=== PATIENT | male | born 1990 | race American Indian/Alaskan Native ===

== ENCOUNTER 2019-07-19 08:05 | Emergency (ER) | payer OTHER ==
[2019-07-19 08:17] VITALS: BP 145/85; PULSE 94; TEMP 98.2; BMI 25.7
--- NOTE | 2019-07-19 08:30 | PDOC ---
History of Present Illness - General Chief Complaint: Pain, Acute Stated Complaint: LT ANKLE INJURY Time Seen by Provider: 07/19/19 08:21 History Source: Patient Exam Limitations: No Limitations - History of Present Illness Initial Comments: 07/19/19 08:32 28 year old male with no significant medical or surgical history presents with pain in left ankle since this am . Patient reports twisting ankle while working this am . STates while picking up garbage he externally rotated his left foot. Occurred: reports: just prior to arrival Method of Injury: reports: twisted Modifying Factors: improves with: immobilization Extremity Pain Location - Extremity Pain Location Extremity Pain Locations: left: foot, ankle Past History - Travel Traveled outside of the country in the last 30 days: No Close contact w/someone who was outside of country & ill: No - Past Medical History Allergies/Adverse Reactions: Allergies Allergy/AdvReac Type Severity Reaction Status Date / Time No Known Allergies Allergy Verified 07/19/19 08:17 Home Medications: Ambulatory Orders Ibuprofen 600 mg PO TID #20 tablet 07/19/19 - Immunization History Immunization Up to Date: No - Psycho Social/Smoking Cessation Hx Smoking History: Former smoker Have you smoked in the past 12 months: Yes Information on smoking cessation initiated: No Hx Alcohol Use: Yes Drug/Substance Use Hx: No Substance Use Type: Alcohol Review of Systems - Review of Systems Able to Perform ROS?: Yes Is the patient limited Russian proficient: No Constitutional: No: Chills, Fever HEENTM: No: Ear Discharge, Nose Pain, Nose Congestion, Throat Pain, Throat Swelling Respiratory: No: Shortness of Breath, SOB at Rest, Wheezing Cardiac (ROS): No: Chest Pain, Lightheadedness : No: Discharge, Hematuria, Incontinence, Urgency Musculoskeletal: Yes: Joint Pain, Joint Swelling Integumentary: No: Bruising, Erythema Neurological: No: Numbness, Paresthesia Psychiatric: No: Stressors *Physical Exam - Vital Signs Last Vital Signs Temp Pulse Resp BP Pulse Ox 98.2 F 94 H 16 145/85 97 07/19/19 08:13 07/19/19 08:13 07/19/19 08:13 07/19/19 08:13 07/19/19 08:13 - Physical Exam General Appearance: Yes: Nourished, Appropriately Dressed HEENT: positive: ROLDAN. negative: TMs Normal, Pharynx Normal Neck: negative: Lymphadenopathy (R), Lymphadenopathy (L) Respiratory/Chest: positive: Lungs Clear Cardiovascular: positive: Regular Rhythm, Regular Rate Musculoskeletal: negative: Vertebral Tenderness Extremity: positive: Normal Capillary Refill, Other (+ tenderness left malleoulus, + swelling of left ankle). negative: Normal Range of Motion, Swelling, Erythema Neurologic: positive: bundle helper II-XII NML intact, Fully Oriented Medical Decision Making - Medical Decision Making 07/19/19 08:48 28 year old male with no significant medical or surgical history presents with pain in left ankle since this am . Patient reports twisting ankle while working this am . Left ankle injury -xray of left ankle 07/19/19 19:40 negative fracture of left ankle fara wrap applied crutches given Discharge - Discharge Information Problems reviewed: Yes Clinical Impression/Diagnosis: Ankle sprain Qualifiers: Encounter type: initial encounter Involved ligament of ankle: unspecified ligament Laterality: left Qualified Code(s): S93.402A - Sprain of unspecified ligament of left ankle, initial encounter Condition: Stable Disposition: HOME - Admission No - Additional Discharge Information Prescriptions: Ibuprofen 600 mg PO TID #20 tablet - Follow up/Referral Referrals: Mara Davidson [Primary Care Provider] - Call tomorrow - Patient Discharge Instructions Patient Printed Discharge Instructions: DI for Ankle Sprain Additional Instructions: Activity as tolerated Apply ice compress for 20 minutes 3 to 4 times daily Call ortho for follow up appointment if pain is not better in 7 days Remove fara wrap for sleep and showering - Post Discharge Activity Work/Back to School Note: Back to Work
[2019-07-19] MEDS ORDERED: ACETAMINOPHEN 500 MG TABLET (FP) PO ONE (09:05)
[2019-07-19] MEDS ORDERED: ACETAMINOPHEN 325 MG TABLET (FP) ONE (09:06)
== END 2019-07-19 09:57 | disposition home or self-care (01) ==
LOC: JERFT 08:05
DX: S93.402A Sprain of unspecified ligament of left ankle, initial encounter (principal); X50.1XXA Overexertion from prolonged static or awkward postures, initial encounter; Y93.H9 Activity, other involving exterior property and land maintenance, building and construction; Y92.89 Other specified places as the place of occurrence of the external cause; Y99.0 Civilian activity done for income or pay
CPT/HCPCS: 73610-TC-LT-FY; 73630-TC-LT; 99281-25

== ENCOUNTER 2019-08-03 09:55 | Emergency (ER) | payer OTHER ==
[2019-08-03 10:09] VITALS: BP 127/67; PULSE 94; TEMP 98.7; BMI 25.7
[2019-08-03] MEDS ORDERED: KETOROLAC TROMETHAMINE 30 MG/1 ML VIAL IM ONE (10:44)
[2019-08-03] MEDS ORDERED: KETOROLAC TROMETHAMINE 30 MG/1 ML VIAL ONE (10:48)
--- NOTE | 2019-08-03 10:50 | PDOC ---
History of Present Illness - General Chief Complaint: Back Pain Stated Complaint: LOWER BACK PAIN Time Seen by Provider: 08/03/19 10:09 - History of Present Illness Initial Comments: 08/03/19 10:46 CHIEF COMPLAINT: back pain HISTORY OF PRESENT ILLNESS: 28 yo M with no significant PMH presents to [facility] with left lower back pain. 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 Pain to left lower back is worse with movement and when he bends his neck down. Denies loss of sensation to extremities, denies loss of bowel or bladder function. No recent travel or sick contacts. PAST MEDICAL HISTORY: Denies past medical history FAMILY HISTORY: Denies SOCIAL HISTORY: Denies tobacco, alcohol, illicit drug use. SURGICAL HISTORY: Denies ALLERGIES: No known drug allergies REVIEW OF SYSTEMS General/Constitutional: Denies fever or chills. Denies weakness, weight change. HEENT: Denies change in vision. Denies ear pain or discharge. Denies sore throat. Cardiovascular: Denies chest pain or shortness of breath. Respiratory: Denies cough, wheezing, or hemoptysis. Gastrointestinal: Denies nausea, vomiting, diarrhea or constipation. Denies rectal bleeding. Genitourinary: Denies dysuria, frequency, or change in urination. Musculoskeletal: Left low back pain. Skin and breasts: Denies rash or easy bruising. Neurologic: Denies headache, vertigo, loss of consciousness, or loss of sensation. Psychiatric: Denies depression or anxiety. PHYSICAL EXAM General Appearance: Well-appearing, appropriately dressed. No apparent distress , no intoxication. HEENT: EOMI, PERRLA, normal ENT inspection, normal voice, TMs normal, pharynx normal. No conjunctival pallor. No photophobia, scleral icterus. Neck: Supple. Trachea midline. No tenderness, rigidity, carotid bruit, stridor , lymphadenopathy, or thyromegaly. Respiratory/Chest: Lungs CTAB. No shortness of breath, chest tenderness, respiratory distress, accessory muscle use. No crackles, rales, rhonchi, stridor , wheezing, dullness Cardiovascular: RRR. S1, S2. No JVD, murmur, bradycardia, tachycardia. Vascular Pulses: Dorsalis-Pedis (R): 2+, Dorsalis-Pedis (L): 2+ Gastrointestinal/Abdominal: Normal bowel sounds. Abdomen soft, non-distended. No tenderness or rebound tenderness. No organomegaly, pulsatile mass, guarding , hernia, hepatomegaly, splenomegaly. Musculoskeletal/Extremities: Tenderness to L paravertebral muscles at L1-3. Fully ambulatory, no saddle anesthesia, sensation intact to b/l lower extremities. FROM of all extremities, normal capillary refill. Pelvis Stable. No CVA tenderness. No tenderness to extremities, pedal edema, swelling, erythema or deformity. Integumentary: Appropriate color, dry, warm. No cyanosis, erythema, jaundice or rash Neurologic: astrobiologist II-XII intact. Fully oriented, alert. Appropriate mood/affect. Motor strength 5/5. No appreciable EOM palsy, facial droop or sensory deficit. Past History - Past Medical History Allergies/Adverse Reactions: Allergies Allergy/AdvReac Type Severity Reaction Status Date / Time No Known Allergies Allergy Verified 08/03/19 10:06 Home Medications: Ambulatory Orders Ibuprofen 600 mg PO TID #20 tablet 07/19/19 Cyclobenzaprine HCl [Flexeril 10 mg] 10 mg PO HS #10 tablet 08/03/19 Diclofenac Sodium 75 mg PO BID #20 tablet. 08/03/19 COPD: No - Immunization History Immunization Up to Date: No - Psycho Social/Smoking Cessation Hx Smoking History: Never smoked Have you smoked in the past 12 months: No Information on smoking cessation initiated: No Hx Alcohol Use: No Drug/Substance Use Hx: No Substance Use Type: Alcohol Trauma Specific PMHX - Complaint Specific PMHX Back Injury: No Neck Injury: No *Physical Exam - Vital Signs Last Vital Signs Temp Pulse Resp BP Pulse Ox 98.7 F 94 H 18 127/67 97 08/03/19 10:07 08/03/19 10:07 08/03/19 10:07 08/03/19 10:07 08/03/19 10:07 Medical Decision Making - Medical Decision Making 08/03/19 10:48 28 yo M with no significant PMH presents to [facility] with left lower back pain. -Toradol IM muscle relaxants, NSAIDS, f/u with ortho Advised patient to take medication as prescribed and follow up with ortho if symptoms persist past 1-2 weeks. Advised patient of signs and symptoms for return to ED. Patient verbalized understanding and agrees to plan. Discharge - Discharge Information Problems reviewed: Yes Clinical Impression/Diagnosis: Muscle strain Condition: Stable Disposition: HOME - Admission No - Additional Discharge Information Prescriptions: Cyclobenzaprine HCl [Flexeril 10 mg] 10 mg PO HS #10 tablet Diclofenac Sodium 75 mg PO BID #20 tablet.dr - Follow up/Referral Referrals: Mara Davidson [Primary Care Provider] - Derek Vance DO [Staff Physician] - - Patient Discharge Instructions Patient Printed Discharge Instructions: DI for Muscle Spasm - Post Discharge Activity
== END 2019-08-03 11:00 | disposition home or self-care (01) ==
LOC: JERFT 09:55
PROC: 3E0233Z Introduction of Anti-inflammatory into Muscle, Percutaneous Approach (ICD-10-PCS; principal; 2019-08-03)
DX: S39.012A Strain of muscle, fascia and tendon of lower back, initial encounter (principal); X50.0XXA Overexertion from strenuous movement or load, initial encounter; Y93.H9 Activity, other involving exterior property and land maintenance, building and construction; Y92.89 Other specified places as the place of occurrence of the external cause; Y99.0 Civilian activity done for income or pay
CPT/HCPCS: 99281-25

== ENCOUNTER 2022-04-29 10:20 | Emergency (ER) | payer OTHER ==
[2022-04-29 10:41] VITALS: BP 133/87; PULSE 83; TEMP 97.9; BMI 24.3
[2022-04-29] MEDS ORDERED: METHOCARBAMOL 500 MG TABLET PO ONE (12:07)
[2022-04-29] MEDS ORDERED: METHOCARBAMOL 500 MG TABLET ONE (12:10)
== END 2022-04-29 12:18 | disposition home or self-care (01) ==
LOC: JERFT 10:20
DX: S46.911A Strain of unspecified muscle, fascia and tendon at shoulder and upper arm level, right arm, initial encounter (principal); X50.0XXA Overexertion from strenuous movement or load, initial encounter
CPT/HCPCS: 73030-TC-RT-FY; 99283-25

== ENCOUNTER 2023-10-31 10:52 | Emergency (ER) | payer OTHER ==
[2023-10-31 11:18] VITALS: BP 146/84; PULSE 87; RESP 18; TEMP 98.5; BMI 24.4
[2023-10-31] MEDS ORDERED: DIPHTH,PERTUSS(ACELL),TET 0.5 ML DISP.SYRIN IM ONE ×2 (12:27→12:52)
[2023-10-31 13:04] LABS: BASO % 0.4 % (0-2.0); EOS % 1.3 % (0-4.5); HEMATOCRIT 45.9 % (35.4-49); HEMOGLOBIN 15.1 GM/dL (11.7-16.9); LYMPH % 20.7 % (8-40); MCH 29.3 pg (25.7-33.7); MEAN CELL VOLUME 88.8 fl (80-96); MONO % 8.4 % (3.8-10.2); NEUT % 69.2 % (42.8-82.8); PLATELET COUNT 289 10^3/uL (134-434); RBC 5.17 M/mm3 (4.00-5.60); RDW 14.1 % (11.9-15.9)
[2023-10-31] MEDS ORDERED: HIV POST EXPOSURE PROPHYLAXIS KIT NR ONE (13:18)
[2023-10-31 13:22] LABS: POTASSIUM 4.7 mmol/L (3.5-5.1)
[2023-10-31 13:23] LABS: CALCIUM 9.2 mg/dL (8.5-10.1)
[2023-10-31 13:24] LABS: ALBUMIN 3.9 g/dl (3.4-5.0); BLOOD UREA NITROGEN 18.8 mg/dL (7-18)
[2023-10-31 13:27] LABS: CREATININE 0.8 mg/dL (0.55-1.3)
[2023-10-31 13:29] LABS: BILIRUBIN,TOTAL 0.5 mg/dL (0.2-1); TOT PROT 7.8 g/dl (6.4-8.2)
[2023-10-31] MEDS ORDERED: HIV POST EXPOSURE PROPHYLAXIS KIT PO ONE (13:35)
[2023-10-31 14:17] LABS: HIV INTERPRETATION NEGATIVE (NEGATIVE)
== END 2023-10-31 13:48 | disposition home or self-care (01) ==
LOC: JERFT 10:52
PROC: 3E0234Z Introduction of Serum, Toxoid and Vaccine into Muscle, Percutaneous Approach (ICD-10-PCS; principal; 2023-10-31)
DX: S61.432A Puncture wound without foreign body of left hand, initial encounter (principal); W46.0XXA Contact with hypodermic needle, initial encounter; Y99.0 Civilian activity done for income or pay
CPT/HCPCS: 36415; 80053; 85025; 86704; 86803; 87340; 87389; 87517; 90715; 99283-25

== ENCOUNTER 2024-04-23 10:26 | Emergency (ER) | payer BC, OTHER ==
[2024-04-23 10:43] VITALS: BP 126/75; PULSE 123; RESP 18; TEMP 98.8; BMI 24.4
[2024-04-23] MEDS: SODIUM CHLORIDE 0.9% 500 ML INFUS.BAG IV ONE (11:48)
[2024-04-23 11:51] LABS: BASO % 0.2 % (0-2.0); EOS % 0.6 % (0-4.5); HEMATOCRIT 41.1 % (35.4-49); HEMOGLOBIN 13.7 GM/dL (11.7-16.9); LYMPH % 10.6 % (8-40); MCH 30.5 pg (25.7-33.7); MCHC 33.5 g/dl (32.0-35.9); MEAN CELL VOLUME 91.2 fl (80-96); MEAN PLT VOLUME 8.7 fl (7.5-11.1); MONO % 15.3 % (3.8-10.2); NEUT % 73.3 % (42.8-82.8); PLATELET COUNT 151 10^3/uL (134-434); WHITE BLOOD COUNT 8.1 K/mm3 (4.0-10.0)
[2024-04-23 12:12] LABS: POTASSIUM 4.3 mmol/L (3.5-5.1)
[2024-04-23 12:14] LABS: ALBUMIN 3.9 g/dl (3.4-5.0); BLOOD UREA NITROGEN 9.7 mg/dL (7-18); CALCIUM 8.8 mg/dL (8.5-10.1)
[2024-04-23 12:19] LABS: BILIRUBIN,TOTAL 0.5 mg/dL (0.2-1); TOT PROT 6.9 g/dl (6.4-8.2)
== END 2024-04-23 13:25 | disposition home or self-care (01) ==
LOC: JER 10:26
DX: R56.9 Unspecified convulsions (principal); E86.0 Dehydration; R55 Syncope and collapse
CPT/HCPCS: 36415; 70450-TC; 80053; 84484; 85025; 93005; 93010; 99285-25